=== PATIENT | male | born 1940 | race Hispanic/Latino ===

== ENCOUNTER 2016-11-15 09:58 | Emergency (ER) | payer MEDICARE ==
[2016-11-15 10:50] LABS: Basophils % (Auto) 0.3 % (0.0-1.8); Eosinophils % (Auto) 1.7 % (0.0-4.3); Hematocrit 41.5 % (35.5-45.6); Hemoglobin 13.8 gm/dl (11.8-15.2); Mean Corpuscular HGB Conc 33 % (32-34); Mean Corpuscular Hemoglobin 31 pg (28-32); Mean Corpuscular Volume 93 fl (84-94); Platelet Count 255 K/mm3 (140-440); Red Blood Count 4.46 M/mm3 (3.65-5.03); Red Cell Distribution Width 13.5 % (13.2-15.2); White Blood Count 11.1 K/mm3 (4.5-11.0)
[2016-11-15 10:56] LABS: Anion Gap 21 mmol/L; BUN/Creatinine Ratio 18.88; Blood Urea Nitrogen 17 mg/dL (9-20); Carbon Dioxide 21 mmol/L (22-30); Chloride 100.6 mmol/L (98-107); Glucose 112 mg/dL (75-100); Potassium 4.6 mmol/L (3.6-5.0); Sodium 138 mmol/L (137-145)
[2016-11-15 11:07] LABS: INR 1.02 (0.87-1.13)
[2016-11-15 11:08] LABS: Partial Thromboplastin Time 32.6 Sec. (24.2-36.6)
--- NOTE | 2016-11-15 11:15 | Emergency Department Report ---
ED General Adult HPI - General Chief complaint: Urogenital-Male Stated complaint: BLEEDING FROM PENIS Time Seen by Provider: 11/15/16 11:14 Source: patient, EMS Mode of arrival: Stretcher Limitations: No Limitations - History of Present Illness Initial comments: Patient has been unable to urinate since last night. He has suprapubic discomfort which is obviously related to a distended. He is status post prostatectomy. Dr. Farias was his urologist. He has not been back to urology doctor for years. He states that he has had hesitancy and difficulty emptying his bladder for quite some time. Last night after he was unable to urinate he developed some zak blood from his penis. He has no history of any urethral problem. He does not complain of fever or chills. -: Gradual, hour(s) Location: abdomen Quality: aching Consistency: constant Improves with: none Worsens with: none Associated Symptoms: denies other symptoms - Related Data Previous Rx's Medication Instructions Recorded Last Taken Type Nitrofurantoin Gilchrist/M-Cryst 100 mg PO Q12HR #14 capsule 11/15/16 Unknown Rx [Macrobid CAP] Allergies Allergy/AdvReac Type Severity Reaction Status Date / Time No Known Allergies Allergy Unverified 11/15/16 10:12 ED Review of Systems ROS: Stated complaint: BLEEDING FROM PENIS Other details as noted in HPI Constitutional: denies: chills, fever Eyes: denies: eye pain, eye discharge, vision change ENT: denies: ear pain, throat pain Respiratory: denies: cough, shortness of breath, wheezing Cardiovascular: denies: chest pain, palpitations Endocrine: no symptoms reported Gastrointestinal: denies: abdominal pain, nausea, diarrhea Genitourinary: as per HPI, urgency, hematuria, other. denies: dysuria Musculoskeletal: denies: back pain, joint swelling, arthralgia Skin: denies: rash, lesions Neurological: denies: headache, weakness, paresthesias Psychiatric: denies: anxiety, depression Hematological/Lymphatic: denies: easy bleeding, easy bruising ED Past Medical Hx - Past Medical History Previous Medical History?: Yes Hx of Cancer: Yes (prostate) - Surgical History Past Surgical History?: Yes Additional Surgical History: prostate removal - Social History Smoking Status: Current Some Day Smoker Substance Use Type: Alcohol - Medications Home Medications: Home Medications Medication Instructions Recorded Confirmed Last Taken Type Nitrofurantoin Gilchrist/M-Cryst 100 mg PO Q12HR #14 capsule 11/15/16 Unknown Rx [Macrobid CAP] ED Physical Exam - General Limitations: No Limitations General appearance: alert, in no apparent distress - Head Head exam: Present: atraumatic, normocephalic - Eye Eye exam: Present: normal appearance. Absent: scleral icterus - ENT ENT exam: Present: mucous membranes moist - Neck Neck exam: Present: normal inspection - Respiratory Respiratory exam: Present: normal lung sounds bilaterally. Absent: respiratory distress - Cardiovascular Cardiovascular Exam: Present: regular rate, normal rhythm. Absent: systolic murmur, diastolic murmur, rubs, gallop - GI/Abdominal GI/Abdominal exam: Present: soft (them is soft and nontender except for the bladder area suprapubic), distended, tenderness (associated with a distended bladder), normal bowel sounds, organomegaly (very significant system megaly noted). Absent: guarding, rebound, rigid - Rectal Rectal exam: Present: deferred - Extremities Exam Extremities exam: Present: normal inspection - Back Exam Back exam: Present: normal inspection. Absent: CVA tenderness (R), CVA tenderness (L) - Neurological Exam Neurological exam: Present: alert, oriented X3, CN II-XII intact. Absent: motor sensory deficit - Psychiatric Psychiatric exam: Present: normal affect, normal mood - Skin Skin exam: Present: warm, dry, intact, normal color. Absent: rash ED Course Vital Signs 11/15/16 10:09 Temperature 98.4 F Pulse Rate 91 H Respiratory 18 Rate Blood Pressure 163/88 O2 Sat by Pulse 98 Oximetry - Reevaluation(s) Reevaluation #1: The trip in progress. Urine is flowing. There is much less blood in the irrigation. Continue to irrigate one more bag. Patient will be discharged. He hasn't seen Dr. Farias since 2003. He may call his office or [place] [facility] for follow-up. 11/15/16 13:59 ED Medical Decision Making - Lab Data Result diagrams: 11/15/16 10:17 11/15/16 10:17 Laboratory Results - last 24 hr 11/15/16 11/15/16 11/15/16 10:17 10:17 10:17 WBC 11.1 H RBC 4.46 Hgb 13.8 Hct 41.5 MCV 93 MCH 31 MCHC 33 RDW 13.5 Plt Count 255 Lymph % (Auto) 14.4 Gilchrist % (Auto) 5.5 Eos % (Auto) 1.7 Baso % (Auto) 0.3 Lymph # 1.6 Gilchrist # 0.6 Eos # 0.2 Baso # 0.0 Seg Neutrophils % 78.1 H Seg Neutrophils # 8.7 H PT 13.3 INR 1.02 APTT 32.6 Sodium 138 Potassium 4.6 Chloride 100.6 Carbon Dioxide 21 L Anion Gap 21 BUN 17 Creatinine 0.9 Estimated GFR > 60 BUN/Creatinine Ratio 18.88 Glucose 112 H Calcium 9.0 Critical care attestation.: If time is entered above; I have spent that time in minutes in the direct care of this critically ill patient, excluding procedure time. ED Disposition Clinical Impression: Gross hematuria, Bladder outlet obstruction Disposition: DISCHARGED TO HOME OR SELFCARE Is pt being admited?: No Does the pt Need Aspirin: No Condition: Stable Instructions: Pelayo Catheter Placement and Care (ED), Urinary Leg Bag (GEN) Additional Instructions: See urologist tomorrow. Return any acute change or problem, fever, chills or any obstruction of urine flow. Prescriptions: Nitrofurantoin Gilchrist/M-Cryst [Macrobid CAP] 100 mg PO Q12HR #14 capsule Referrals: PRIMARY CARE, [Primary Care Provider] - 3-5 Days Time of Disposition: 14:01
[2016-11-15] MEDS ORDERED: NACL 0.9% IR SCH (12:00)
--- NOTE | 2016-11-15 15:20 | ED Elopement Review ---
ED Pt Elopement review - Results review Lab results: Laboratory Tests 11/15/16 11/15/16 11/15/16 10:17 10:17 10:17 WBC 11.1 H RBC 4.46 Hgb 13.8 Hct 41.5 MCV 93 MCH 31 MCHC 33 RDW 13.5 Plt Count 255 Lymph % (Auto) 14.4 [place] % (Auto) 5.5 Eos % (Auto) 1.7 Baso % (Auto) 0.3 Lymph # 1.6 [place] # 0.6 Eos # 0.2 Baso # 0.0 Seg Neutrophils % 78.1 H Seg Neutrophils # 8.7 H PT 13.3 INR 1.02 APTT 32.6 Sodium 138 Potassium 4.6 Chloride 100.6 Carbon Dioxide 21 L Anion Gap 21 BUN 17 Creatinine 0.9 Estimated GFR > 60 BUN/Creatinine Ratio 18.88 Glucose 112 H Calcium 9.0 - Call Back decision Pt Call Back Decision: No action required
[2016-11-15 15:22] LABS: Bilirubin,Urine NEG (Negative); Blood,Urine MOD (Negative); Ketones,Urine TR mg/dL (Negative); Leukocyte Esterase,Urine MOD (Negative); Nitrite,Urine NEG (Negative); Urobilinogen,Urine < 2.0 mg/dL (<2.0)
[2016-11-15 15:25] LABS: RBC,Urine > 182.0 /HPF (0.0-6.0)
[2016-11-15 17:56] VITALS: BP 138/78
== END 2016-11-15 17:56 | disposition home or self-care (01) ==
LOC: ED 09:58
DX: R31.0 Gross hematuria (principal); N32.0 Bladder-neck obstruction; F17.200 Nicotine dependence, unspecified, uncomplicated; Z85.46 Personal history of malignant neoplasm of prostate
CPT/HCPCS: 36415; 51702; 80048; 81001; 85025; 85610; 85730; 87076; 87086; 87186; 99284; A4217

== ENCOUNTER 2016-11-17 15:11 | Emergency (ER) | payer MEDICARE, OTHER ==
--- NOTE | 2016-11-17 17:21 | Emergency Department Report ---
ED Fall HPI - General Chief Complaint: Urogenital-Male Stated Complaint: HEMATURIA Time Seen by Provider: 11/17/16 16:57 Source: patient, EMS Mode of arrival: Stretcher Limitations: No Limitations - History of Present Illness Initial Comments: 76-year-old male with a past medical history of prostate cancer status post prostatectomy in 2003 and a history of transverse myelitis in 1990 presents to the hospital status post fall, weakness, and continual hematuria. Patient was seen and evaluated here on the for urinary retention. Patient was seen by Dr. Calix. Apparently patient hypertension then a episode of hematuria. Patient had a catheter and irrigation performed in the ER and was discharged home to follow-up with urology. Patient states he attempts to call urology the next day (yesterday) and was told he should be receiving a email or guarding a follow-up appointment. As of today patient has no follow-up plan and has not heard back in the office. Patient was discharged on Macrobid as per medical record for patient denies receiving a prescription is not currently taking any antibiotics. Today patient while getting out of bed his legs gave out and he fell on the floor. He will did not have enough strength to stand up and has been crawling around the house since 7:30 AM until pickup by ambulance. Patient states the weakness in his legs is new. At his baseline he has mild left leg weakness requiring a cane use and chronic cold sensation in his bilateral lower extremities. He denies back pain or fever. - Related Data Home Medications Medication Instructions Recorded Confirmed Last Taken Ibuprofen [Motrin] 800 mg PO PRN 11/17/16 11/17/16 Unknown Allergies Allergy/AdvReac Type Severity Reaction Status Date / Time No Known Allergies Allergy Unverified 11/15/16 10:12 ED Review of Systems ROS: Stated complaint: HEMATURIA Other details as noted in HPI Comment: All other systems reviewed and negative Other: Constitutional: No fevers chills or weight loss Eyes: No eye pain visual changes or discharge ENT: No ear pain or throat pain Neck: Denies pain Respiratory: Denies cough wheezing shortness of breath Cardiovascular: Denies chest pain, palpitations, syncope GI: Denies abdominal pain, nausea, vomiting, diarrhea : as per hpi Musculoskeletal: Denies back pain Skin: Denies rash, lesions, erythema Neurologic: Denies headache ED Past Medical Hx - Past Medical History Previous Medical History?: Yes Hx of Cancer: Yes (Prostate cancer-chemo/radiation) Additional medical history: Scoliosis. transverse myelitis in 1990 resulting in cane use, mild left leg weakness and b/l foot cold sensation - Surgical History Past Surgical History?: Yes Additional Surgical History: prostate removal. cornelia inguinal hernia removal - Social History Smoking Status: Light Tobacco Smoker Substance Use Type: Alcohol - Medications Home Medications: Home Medications Medication Instructions Recorded Confirmed Last Taken Type Ibuprofen [Motrin] 800 mg PO PRN 11/17/16 11/17/16 Unknown History ED Physical Exam - General Limitations: Physical Limitation - Other Other exam information: General: No limitations, patient is alert in no acute distress Head exam: Atraumatic, normocephalic Eyes exam: Normal appearance, pupils equal reactive to light, extraocular movements intact ENT: Moist mucous membrane, normal oropharynx Neck exam: Normal inspection, full range of motion Respiratory exam: Clear to auscultation bilateral, no wheezes, rales, crackles Cardiovascular: Normal rate and rhythm, normal heart sounds Abdomen: Soft, nondistended, and nontender, with normal bowel sounds, no rebound, or guarding Extremity: Full range of motion of extremities. Bruising noted to anterior knees from crawling. No specific bony tenderness Back: no tenderness Neurologic: Alert, oriented x3, cranial nerves intact, patient is unable to sustain any antigravity movement. He is unable to lift legs off the bed and when I passively lift them he cannot sustain. Sensation to light touch grossly intact and equal. Psychiatric: normal affect, normal mood Skin: Warm, dry, intact ED Course Vital Signs 11/17/16 11/17/16 11/17/16 16:38 16:40 16:46 Temperature 98.9 F Pulse Rate 89 86 85 Respiratory 18 20 15 Rate Blood Pressure 151/71 Blood Pressure 151/71 [Left] O2 Sat by Pulse 97 98 Oximetry 11/17/16 11/17/16 11/17/16 16:50 16:59 17:00 Temperature Pulse Rate 87 86 Respiratory 24 15 16 Rate Blood Pressure 156/62 156/62 Blood Pressure [Left] O2 Sat by Pulse 98 98 98 Oximetry 11/17/16 11/17/16 11/17/16 17:10 17:20 17:30 Temperature Pulse Rate 89 88 91 H Respiratory 15 17 9 L Rate Blood Pressure 171/67 171/67 171/67 Blood Pressure [Left] O2 Sat by Pulse 98 96 96 Oximetry 11/17/16 11/17/16 11/17/16 17:40 17:50 18:00 Temperature Pulse Rate 93 H 88 89 Respiratory 12 19 15 Rate Blood Pressure 171/67 171/67 171/67 Blood Pressure [Left] O2 Sat by Pulse 97 97 95 Oximetry 11/17/16 11/17/16 11/17/16 18:10 18:20 18:30 Temperature Pulse Rate 96 H 97 H 97 H Respiratory 21 28 H 23 Rate Blood Pressure 146/58 146/58 146/58 Blood Pressure [Left] O2 Sat by Pulse 96 97 95 Oximetry 11/17/16 11/17/16 11/17/16 18:40 18:50 18:54 Temperature Pulse Rate 92 H 97 H 97 H Respiratory 18 15 19 Rate Blood Pressure 146/58 171/67 Blood Pressure 146/58 [Left] O2 Sat by Pulse 97 96 98 Oximetry 11/17/16 11/17/16 11/17/16 19:40 19:50 19:51 Temperature 101.4 F H Pulse Rate 97 H 98 H Respiratory 25 H 15 Rate Blood Pressure 146/58 160/68 Blood Pressure 160/68 [Left] O2 Sat by Pulse 95 97 96 Oximetry 11/17/16 11/17/16 11/17/16 20:00 20:10 20:20 Temperature Pulse Rate 96 H 96 H 99 H Respiratory 21 26 H 11 L Rate Blood Pressure 152/63 152/63 152/63 Blood Pressure [Left] O2 Sat by Pulse 97 96 96 Oximetry 11/17/16 11/17/16 11/17/16 20:30 20:40 20:50 Temperature Pulse Rate 93 H 97 H 99 H Respiratory 19 25 H 22 Rate Blood Pressure 152/63 152/63 152/63 Blood Pressure [Left] O2 Sat by Pulse 97 96 95 Oximetry 11/17/16 11/17/16 11/17/16 21:00 21:10 21:20 Temperature Pulse Rate 96 H 88 95 H Respiratory 28 H 26 H 28 H Rate Blood Pressure 159/54 159/54 159/54 Blood Pressure [Left] O2 Sat by Pulse 94 95 96 Oximetry 11/17/16 11/17/16 11/17/16 21:30 21:40 21:50 Temperature Pulse Rate 92 H 94 H 92 H Respiratory 14 23 15 Rate Blood Pressure 159/54 159/54 159/54 Blood Pressure [Left] O2 Sat by Pulse 94 95 96 Oximetry 11/17/16 11/17/16 11/17/16 21:51 22:00 22:10 Temperature 99.6 F Pulse Rate 87 82 Respiratory 17 22 Rate Blood Pressure 136/59 136/59 Blood Pressure [Left] O2 Sat by Pulse 95 94 Oximetry 11/17/16 11/17/16 22:20 22:30 Temperature Pulse Rate 81 82 Respiratory 21 23 Rate Blood Pressure 136/59 136/59 Blood Pressure [Left] O2 Sat by Pulse 95 96 Oximetry - Reevaluation(s) Reevaluation #1: 11/17/16 19:54 Patient developed a fever at this time. UA shows infection and was collected by previous shift. I am unsure if it was collected from port or bag. Culture of urine and blood ordered at this time. Rocephin 1 g ordered - Consultations Consultation #1: 11/17/16 17:30 Dr Levine consulted (neurolgy) and will evaluate. Consultation #2: 11/17/16 21:54 Case d/w Dr Leonard with [facility] transfer service and has accepted the pt for transfer and admission 11/17/16 21:58 received call back from [facility] the do not have beds and can not accept the pt. 11/17/16 21:58 [facility] transfer service informed 11/17/16 23:23 No call back in an hour after Central page therefore [facility] was contacted and accepted patient Consultation #3: 11/17/16 23:21 Dr Kirby from [facility] contacted and Has accepted pt for transfer. ED Medical Decision Making - Lab Data Result diagrams: 11/17/16 17:42 11/17/16 17:42 Lab Results 11/17/16 11/17/16 11/17/16 Range/Units 17:42 17:42 17:42 WBC 10.4 (4.5-11.0) K/mm3 RBC 4.02 (3.65-5.03) M/mm3 Hgb 12.6 (11.8-15.2) gm/dl Hct 37.3 (35.5-45.6) % MCV 93 (84-94) fl MCH 31 (28-32) pg MCHC 34 (32-34) % RDW 14.0 (13.2-15.2) % Plt Count 208 (140-440) K/mm3 Lymph % (Auto) 9.6 L (13.4-35.0) % [place] % (Auto) 5.8 (0.0-7.3) % Eos % (Auto) 0.0 (0.0-4.3) % Baso % (Auto) 0.3 (0.0-1.8) % Lymph # 1.0 L (1.2-5.4) K/mm3 [place] # 0.6 (0.0-0.8) K/mm3 Eos # 0.0 (0.0-0.4) K/mm3 Baso # 0.0 (0.0-0.1) K/mm3 Seg Neutrophils % 84.3 H (40.0-70.0) % Seg Neutrophils # 8.8 H (1.8-7.7) K/mm3 Sodium 136 L (137-145) mmol/L Potassium 3.7 (3.6-5.0) mmol/L Chloride 95.3 L (98-107) mmol/L Carbon Dioxide 25 (22-30) mmol/L Anion Gap 19 mmol/L BUN 24 H (9-20) mg/dL Creatinine 0.9 (0.8-1.5) mg/dL Estimated GFR > 60 ml/min BUN/Creatinine Ratio 26.66 % Glucose 132 H (75-100) mg/dL Calcium 9.1 (8.4-10.2) mg/dL Total Creatine Kinase 436 H (55-170) units/L CK-MB (CK-2) 3.3 (0.0-4.0) ng/mL CK-MB (CK-2) Rel Index 0.7 (0-4) Troponin T < 0.010 (0.00-0.029) ng/mL Urine Color (Yellow) Urine Turbidity (Clear) Urine pH (5.0-7.0) Ur Specific [place] (1.003-1.030) Urine Protein (Negative) mg/dL Urine Glucose (UA) (Negative) mg/dL Urine Ketones (Negative) mg/dL Urine Blood (Negative) Urine Nitrite (Negative) Urine Bilirubin (Negative) Urine Urobilinogen (<2.0) mg/dL Ur Leukocyte Esterase (Negative) Urine WBC (Auto) (0.0-6.0) /HPF Urine RBC (Auto) (0.0-6.0) /HPF Ur Renal Epithelial Cell /LPF Urine Mucus /HPF 11/17/16 Range/Units 18:47 WBC (4.5-11.0) K/mm3 RBC (3.65-5.03) M/mm3 Hgb (11.8-15.2) gm/dl Hct (35.5-45.6) % MCV (84-94) fl MCH (28-32) pg MCHC (32-34) % RDW (13.2-15.2) % Plt Count (140-440) K/mm3 Lymph % (Auto) (13.4-35.0) % [place] % (Auto) (0.0-7.3) % Eos % (Auto) (0.0-4.3) % Baso % (Auto) (0.0-1.8) % Lymph # (1.2-5.4) K/mm3 [place] # (0.0-0.8) K/mm3 Eos # (0.0-0.4) K/mm3 Baso # (0.0-0.1) K/mm3 Seg Neutrophils % (40.0-70.0) % Seg Neutrophils # (1.8-7.7) K/mm3 Sodium (137-145) mmol/L Potassium (3.6-5.0) mmol/L Chloride (98-107) mmol/L Carbon Dioxide (22-30) mmol/L Anion Gap mmol/L BUN (9-20) mg/dL Creatinine (0.8-1.5) mg/dL Estimated GFR ml/min BUN/Creatinine Ratio % Glucose (75-100) mg/dL Calcium (8.4-10.2) mg/dL Total Creatine Kinase (55-170) units/L CK-MB (CK-2) (0.0-4.0) ng/mL CK-MB (CK-2) Rel Index (0-4) Troponin T (0.00-0.029) ng/mL Urine Color Red (Yellow) Urine Turbidity Cloudy (Clear) Urine pH 6.0 (5.0-7.0) Ur Specific [place] 1.019 (1.003-1.030) Urine Protein 100 mg/dl (Negative) mg/dL Urine Glucose (UA) Neg (Negative) mg/dL Urine Ketones 20 (Negative) mg/dL Urine Blood Lg (Negative) Urine Nitrite Pos (Negative) Urine Bilirubin Neg (Negative) Urine Urobilinogen < 2.0 (<2.0) mg/dL Ur Leukocyte Esterase Lg (Negative) Urine WBC (Auto) > 182.0 H (0.0-6.0) /HPF Urine RBC (Auto) > 182.0 (0.0-6.0) /HPF Ur Renal Epithelial Cell 2 /LPF Urine Mucus 2+ /HPF - Radiology Data Radiology results: report reviewed CT abdomen and pelvis without contrast: Increased perinephric and periureteric Changes seen on the left possibly due to infectious or inflammatory. Less likely a recently passed stone. CT thoracic spine with IV contrast: Prominent scoliosis is seen in the large left lateral osteophytes in the mid to lower thoracic spine. There is a predominant left neuroma foraminal stenosis are seen to to be changes in the lower thoracic spine. CT lumbar spine with IV contrast: Prominent scoliosis is seen with prominent bony neural foraminal stenosis on the right at L4-L5 - Medical Decision Making Plan to transfer patient to [facility] due to new-onset weakness and lack of neurology and neurosurgery coverage at this facility. Patient's weakness could be due to a new spinal cord issue or related to acute infection/ UTI. I am unsure cause of hematuria at this time. Patient received Rocephin and urine cultures have been ordered. - Differential Diagnosis spinal cord disorder, transverse myelitis, cystitis Critical Care Time: No Critical care attestation.: If time is entered above; I have spent that time in minutes in the direct care of this critically ill patient, excluding procedure time. ED Disposition Clinical Impression: Gross hematuria, Bladder outlet obstruction, Pelayo catheter in place prior to arrival, Bilateral leg weakness, UTI (urinary tract infection), Fever, Hx of prostatic malignancy, Hx of prostatectomy Disposition: DC/TX ANOTHER TYPE HEALTHCARE Is pt being admited?: Yes Condition: Stable Time of Disposition: 23:24 (Dr Kirby [facility] accepted pt for transfer and admission )
[2016-11-17 18:04] LABS: Basophils % (Auto) 0.3 % (0.0-1.8); Hematocrit 37.3 % (35.5-45.6); Hemoglobin 12.6 gm/dl (11.8-15.2); Mean Corpuscular HGB Conc 34 % (32-34); Mean Corpuscular Hemoglobin 31 pg (28-32); Mean Corpuscular Volume 93 fl (84-94); Platelet Count 208 K/mm3 (140-440); Red Blood Count 4.02 M/mm3 (3.65-5.03); White Blood Count 10.4 K/mm3 (4.5-11.0)
[2016-11-17 18:24] LABS: Anion Gap 19 mmol/L; BUN/Creatinine Ratio 26.66; Blood Urea Nitrogen 24 mg/dL (9-20); Calcium 9.1 mg/dL (8.4-10.2); Carbon Dioxide 25 mmol/L (22-30); Chloride 95.3 mmol/L (98-107); Glucose 132 mg/dL (75-100); Potassium 3.7 mmol/L (3.6-5.0); Sodium 136 mmol/L (137-145)
[2016-11-17 18:25] LABS: Creatine Kinase MB 3.3 ng/mL (0.0-4.0)
[2016-11-17 18:26] LABS: Creatine Kinase 436 units/L (55-170)
[2016-11-17] MEDS ORDERED: NACL 0.9% 1000 ML 1,000 ML IV ONE (18:31)
[2016-11-17 19:10] LABS: Bilirubin,Urine NEG (Negative); Blood,Urine LG (Negative); Ketones,Urine 20 mg/dL (Negative); Leukocyte Esterase,Urine LG (Negative); Mucus,Urine 2+ /HPF; Nitrite,Urine POS (Negative); Renal Epithelial Cells,Urine 2 /LPF; Urobilinogen,Urine < 2.0 mg/dL (<2.0)
[2016-11-17 19:11] LABS: RBC,Urine > 182.0 /HPF (0.0-6.0); WBC,Urine > 182.0 /HPF (0.0-6.0)
--- NOTE | 2016-11-17 19:18 | Admit Criteria Form ---
Admission Criteria Documentation: NEUROLOGY [facility] Clinical Indications for Admission to Inpatient Care (Place ' X' for any and all applicable criteria): Hospital admission is needed for appropriate care of the patient because of ANY ONE of the following: [ ]I. New-onset or worsening altered mental status remaining after emergency or observation level care (as appropriate) (9)(10)(11) [ ]II. Severe MILL OILER infections or inflammatory conditions, including ANY ONE of the following(1)(2)(3): [ ]a) Intracranial abscess [ ]b) Spinal abscess or myelitis [ ]c) Tuberculous or other nonbacterial, nonviral MILL OILER infection(8) [ ]III. Encephalitis(1)(2)(3) [ ]IV. Status epilepticus or repetitive seizures not controlled with emergent treatment [A] (7)(8) [ ]V. Transient alteration in consciousness with high-risk etiology; examples include (12)(13): [ ]a) Cardiovascular source [ ]b) Cataplexy [ ]. Cerebral aneurysm requiring ANY ONE of the following(14): [ ]a) IV antihypertensives or vasoactive agents [ ]b) Sedation and analgesia for suspected leak [ ]c) Need for external ventricular drainage and cerebral perfusion pressure monitoring [ ]d) Emergent evaluation to determine need for surgical clipping or endovascular coiling by interventional radiology. If surgery is required ( Also use Craniotomy, Supratentorial, for Surgery of Bleeding Intracranial Aneurysm (for bleeding aneurysm) or Craniotomy, Supratentorial (for nonbleeding aneurysm) as appropriate. [ ]VII. Altered mental status that is severe or persistent(16) [ ]VIII New-onset severe neurologic findings requiring inpatient care; examples include: [ ]a) Papilledema [ ]b) Cerebral edema [ ]c) Mass effect on imaging [X]IX. New-onset severe neurologic symptom requiring inpatient care indicated by ANY ONE of the following: [ ]a) Aphasia(15) [X]b) Weakness (grade 3 or less) [ ]c) Paralysis (eg, hemiplegia) [ ]d) Spasticity(16) [ ]e) Ataxia(17) [ ]f) Amnesia(18) [ ]g) Involuntary movements(19) [ ]h) Vertigo [ ]i) Other severe neurologic symptom not treatable at alternative level of care (eg, observation care) [ ]X. Guillain-Datil syndrome(20) [ ]XI. Myasthenia gravis crisis or inpatient monitoring need as indicated by ANY ONE of the following(21): [ ]a) Inadequate airway protection [ ]b) Respiratory insufficiency requiring intubation or inpatient. monitoring [ ]c) Progressive dysphagia with failure to thrive [ ]d) Intensive treatment (eg, course of plasmapheresis) with inadequate outpatient situation to monitor patients status [ ]XII. Multiple sclerosis or other acute demyelinating disease requiring inpatient care as indicated by ANY ONE of the following (22)(23): [ ]a) Acute severe deterioration requiring inpatient treatment (eg, IV steroids, plasmapheresis, close observation) [ ]b) Acute complication requiring inpatient care (eg, sepsis, severe decubitus, aspiration) [ ]XIII. Intracranial hypertension (eg, pseudotumor cerebri) requiring inpatient care (eg, acute visual loss, inadequate oral intake) (24) [ ]XIV.Parkinson disease requiring inpatient care (Also use Optimal Recovery Care Criteria or General Recovery Criteria as appropriate) indicated by ANY ONE of the following(25): [ ]a) Infection (eg, aspiration pneumonia) not treatable at alternative level of care [ ]b) Volume depletion not responsive to emergency and observation care treatment (as appropriate) [ ]c) Life-threatening agitation or psychotic behavior not treatable on emergency, observation care, or alternative level (eg, residential) basis [ ]d) Severe medication withdrawal effects (eg, freezing, neuroleptic malignant syndrome) not responsive to emergency and observation care treatment (as appropriate) [ ]e) Other severe manifestation not treatable at alternative level of care [ ]XV.Amyotrophic lateral sclerosis with inpatient care needs as indicated by ANY ONE of the following(26): [ ]a) Acute complications requiring inpatient care (Use Optimal Recovery Care Criteria or General Recovery Criteria as appropriate); examples include: [ ]i) Aspiration pneumonia [ ]ii) Sepsis [ ]b) Dehydration or hypovolemia (not responsive to emergency and observation care treatment as appropriate) AND artificial support desired [ ]c) Inadequate airway protection AND artificial support desired [ ]d) Severe ventilatory insufficiency AND artificial support desired [ ]XVI.Severe myopathy, neuropathy, or other neuromuscular disease as indicated by ANY ONE of the following: [ ]a) New-onset severe diffuse weakness (eg, strength 3/5 or less) [ ]b) Severe dysphagia [ ]c) Dyspnea at rest or with minimal exertion (new) [ ]d) Inadequate airway protection [ ]e) Inadequate ventilation as indicated by ANY ONE of the following : [ ]i) Partial pressure of carbon dioxide greater than 44 mm Hg (5.9 kPa) (new) [ ]ii) Reduced peak expiratory flow rate (new) [ ]iii) Vital capacity less than 50% of predicted ( less than 15 mL/kg) [ ]iv) Peak inspiratory force less negative than -30 cm H20 (-2942 Pa) [ ]XVII.Complications of congenital or degenerative disease (eg, infection, seizures, dehydration, injury) not responsive to emergency and observation care treatment (as appropriate ) [C](16)(29)(30) [ ]XVIII.Suspected or confirmed nerve or muscle toxic injury, including ANY ONE of the following: [ ]a) Rhabdomyolysis(31) [ ]b) Botulism(32) [ ]c) Other severe toxin-induced sign or symptom [ ]XIX. Neurologic trauma requiring inpatient treatment (medical) indicated by ANY ONE of the following(33)(34): [ ]a) Vital signs or neurologic signs more frequently than every 4 hours [ ]b) Hyperosmolar therapy [ ]c) Respiratory monitoring [ ]d) Intracranial pressure monitoring and treatment [ ]e) Stabilization and immobilization device placement (eg, braces, body jacket) [ ]f) Intubation & mechanical ventilation for airway protection or therapeutic hyperventilation [ ]g) Other treatment or monitoring needed that requires inpatient level of care [ ]XX.Complications of neurologic devices (eg, ventricular shunt, neurostimulator) requiring ANY ONE of the following(35)(36): [ ]a) IV antibiotics with monitoring while awaiting culture results [ ]b) Monitoring for hydrocephalus [ ]XXI Vasculitis with ANY ONE of the following(4)(5): [ ]a) Altered mental status [ ]b) Psychosis [ ]c) Seizures [ ]XXII. Neurology condition and ALL of the following: [ ]a) Symptom or finding for which emergency and observation care have failed or are not considered appropriate (Use General Criteria: Observation Care as appropriate) [ ]b) Presence of ANY ONE of the following: [ ]i) A General Admission Criteria [ ]ii A Pediatric General Admission Criteria The original [facility] content created by [facility] has been revised. The portions of the content which have been revised are identified through the use of italic text or in bold, and [facility] has neither reviewed nor approved the modified material. All other unmodified content is copyright [facility] Please see references footnoted in the original [facility] edition 2016
--- NOTE | 2016-11-17 20:52 | Cat Scan Report ---
FINAL REPORT PROCEDURE: CT ABDOMEN PELVIS WO CON TECHNIQUE: Computerized axial tomography of the abdomen and pelvis was performed without intravenous contrast. This study is performed without intravascular contrast material and its sensitivity for abdominal and pelvic pathology, including neoplasms, inflammation, abscess, free fluid, thrombosis, arterial dissection and infarction, is reduced compared with a contrast enhanced study. HISTORY: hematuria, hx of prostate cancer-prostectomy COMPARISON: No prior studies are available for comparison. FINDINGS: Mild hypoventilatory changes are seen at the lung bases. Spleen is top normal limits in size. Liver and gallbladder display no abnormalities. There is partial fatty replacement of the pancreas. The adrenal glands and abdominal aorta are normal in size. Increased perinephric streaky densities are seen on the left compared to the right. No hydronephrosis or ureterectasis is seen but there may be mild left periureteric streaky densities, also. Infectious or inflammatory involvement of the left kidney and collecting system is not excluded given the appearance. Less likely findings could be due to recently passed stone. No stones are seen in either kidney. Bladder is decompressed with a Pelayo catheter. Surgical clips are seen in the deep pelvis. No free pelvic fluid is seen. Diverticula are seen in the left side of the colon without evidence of diverticulitis. Normal appendix is seen. Prominent levoscoliosis is seen centered in the mid lumbar spine with likely moderate lumbar spondylosis. IMPRESSION: Increased perinephric and periureteric changes are seen on the left possibly due to infectious or inflammatory condition in the left kidney and ureter. Less likely findings are due to recently passed stone.
[2016-11-17] MEDS ORDERED: ROCEPHIN/NS 1 GM/50 ML 1 GM/50 ML BAG IV ONE (20:57)
--- NOTE | 2016-11-17 20:57 | Cat Scan Report ---
FINAL REPORT PROCEDURE: CT THORACIC SPINE W CON TECHNIQUE: Computerized axial tomography of the thoracic spine was performed of the thoracic spine without IV contrast. HISTORY: b/l leg weakness, urine retention, hematuria COMPARISON: No prior studies are available for comparison. FINDINGS: Prominent dextroscoliosis is seen centered in the lower thoracic spine. Large left lateral osteophytes are seen in the mid to lower thoracic spine. No thoracic compression fracture is seen. No subluxation is seen. Bony changes cause prominent left neural foraminal stenosis at T11-12, T10-11, T9-10 and T8-9. IMPRESSION: Prominent scoliosis is seen with large left lateral osteophytes in the mid to lower thoracic spine. Areas of prominent left neural foraminal stenosis are seen due to these changes in the lower thoracic spine.
--- NOTE | 2016-11-17 21:02 | Cat Scan Report ---
FINAL REPORT PROCEDURE: CT LUMBAR SPINE W CON TECHNIQUE: Contrast-enhanced CT of the lumbar spine is performed with sagittal and coronal reconstructions. HISTORY: b/l leg weakness, urine retention, hematuria COMPARISON: No prior studies are available for comparison. FINDINGS: Prominent levoscoliosis is seen in the lower lumbar spine. Large right lateral osteophytes are seen in the mid lumbar spine. No suspicious lytic or sclerotic lesions are seen. Hypertrophic facet changes and uncovertebral osteophytes cause prominent right neural foraminal stenosis at L4-5. No lumbar compression fracture is seen. IMPRESSION: Prominent scoliosis is seen with prominent bony neural foraminal stenosis on the right at L4-5.
[2016-11-17] MEDS ORDERED: TYLENOL PO ONE (21:56)
--- NOTE | 2016-11-18 00:38 | Admit Criteria Form ---
Admission Criteria Documentation: UROLOGIC DISEASE [facility] Clinical Indications for Admission to Inpatient Care (Place ' X' for any and all applicable criteria): Hospital admission is needed for appropriate care of the patient because of ANY ONE of the following: [ ]I. New-onset Reduced urine output, or hydronephrosis remaining after emergency or observation level care indicated by ANY ONE the following (1)(2) [ ]a) Urine output less than 0.5 mL/kg/hour for 6 hours in adult [ ]b) Anuria (urine output less than 0.1 mL/kg/hour) for 4 hours in any age group [ ]c) Reduced output in child as indicated by ANY ONE of the following (3) [ ]i) Urine output less than 2 mL/kg/hour for 6 hours in younger than 2 [ ]ii) Urine output less than 1 mL/kg/hour for 6 hours in child younger than 12 years [ ]iii) Urine output less than 0.75 mL/kg/hour for 6 hours in adolescent younger than 18 years [ ]II. Acute urinary retention requiring inpatient management as indicated by ANY ONE of the following(1)(13): [ ]a) Hemodynamic instability remaining after emergency or observation level care (as appropriate) [ ]b) Retention cannot be alleviated via emergency or observation level care (eg, urinary catheter placement) [ ]c) Acute neurologic etiology (eg, cauda equina) [ ]d) Dehydration or other complications not manageable with emergency or observation level care [ ]e) Acute kidney injury (that does not qualify as Acute renal failure ) requiring inpatient care indicated by ALL of the following(5)(6)(7)(8) (9): [ ]i) Acute kidney injury indicated by ANY ONE of the following: [ ]1) 2-fold or more rise in serum creatinine from baseline [ ]2) Reduction of more than 50% in estimated glomerular filtration rate from baseline [ ]3) Urine output less than 0.5 mL/kg/hr for 12 hours despite adequate volume status [ ]ii) Worsening clinical status (eg, rising creatinine) despite outpatient and observation care treatment (eg, hydration) [X ]III. Gross hematuria requiring inpatient management as indicated by ANY ONE of the following(1)(2): [ X]a) Evidence of renal obstruction [ ]b) Reduced urine output (eg urine output <0.5mL/kg per hr over 6 hrs) [ ]c) Clot retention after urinary catheterization and irrigation [ ]d) Anemia [ ]e) Systemic cause needing inpatient treatment (eg, Goodpasture syndrome) [ ]IV. Urologic infection requiring inpatient care as indicated by ANY ONE of the following(10)(11)(12): [ ]a) Dehydration that is severe or persistent [ ]b) Hemodynamic instability [ ]c) Failure of, or inability to tolerate, outpatient treatment regimen [ ]d) Increased creatinine without known prior cause [ ]e) Known renal or urologic abnormalities (eg, indwelling catheter , structural abnormalities) [ ]f) Recent urologic manipulation [ ]g) Urinary obstruction [ ]h) Immunocompromised state [ ]V. Renal disease needing inpatient care (eg, nephritis, nephrosis) as indicated by ANY ONE of the following(2)(3)(4): [ ]a) Systemic cause (eg, Goodpasture syndrome) needing inpatient care (5) [ ]b) Rapidly progressive disease needing inpatient care (eg, plasmapheresis, immunosuppression)(6) [ ]c) Hemoptysis [ ]d) Hemolysis or thrombosis [ ]e) Anasarca needing inpatient care [ ]f) Hemolytic uremic syndrome(7)(8) [ ]g) Acute renal failure [ ]h) Significant uremic complications as indicated by ANY ONE of the following(1)(2)(3): [ ]i) Outpatient therapy is ineffective or not feasible for ANY ONE of the following: [ ]1) Severe heart failure [ ]2) Severe hypertension [ ]3) Pleural effusion [ ]4) Pericarditis or pericardial effusion [ ]ii) Cardiac arrhythmias of immediate concern [ ]iii) Recurrent seizures [ ]iv) Bleeding abnormalities (eg, platelet dysfunction) with active (eg, gastrointestinal) bleeding [ ]v) Dialysis indicated before long-term access or ambulatory arrangements can be made [ ]vi) Significant metabolic or electrolyte abnormalities (eg , severe acidosis or hyperkalemia) [ ]vii) Intractable nausea or vomiting [ ]viii) Encephalopathy [ ]. New-onset oliguria, anuria, or hydronephrosis not responsive to emergency and observation care treatment (as appropriate)(1) [ ]VII. Trauma to renal, genital, or urologic system requiring inpatient medical care(14)(15)(16)(17) [ ]VIII.Scrotal, testicular, or epididymal disorder requiring inpatient care indicated by ANY ONE of the following(1)(14)(15)(16): [ ]a) Scrotal edema or infection not manageable with emergency or observation level care [ ]b) Orchitis not manageable with emergency or observation level care [ ]c) Epididymitis not manageable with emergency or observation level of care [ ]d) Other scrotal, testicular, or epididymal disorder (eg, infection, inflammation) not manageable with emergency or observation level care [ ]IX. Urologic Disease and ALL of the following: [ ]a) Symptom or finding for which emergency and observation care have failed or are not considered appropriate (Use General Criteria: Observation Care as appropriate) [ ]b) Presence of ANY ONE of the following: [ ]i) A General Admission Criteria [ ]ii) A Pediatric General Admission Criteria The [facility] content created by [facility] has been revised. The portions of the content which have been revised are identified through the use of italic text or in bold, and [facility] has neither reviewed nor approved the modified material. All other unmodified content is copyright [facility]. Please see references footnoted in the original [facility] edition 2016 Admission Criteria Met: Yes
[2016-11-18 01:08] VITALS: BP 147/72
== END 2016-11-18 02:16 | disposition other institution (70) ==
LOC: ED 15:11
DX: R31.0 Gross hematuria (principal); N32.0 Bladder-neck obstruction; M62.81 Muscle weakness (generalized); N39.0 Urinary tract infection, site not specified; Z85.46 Personal history of malignant neoplasm of prostate; F17.200 Nicotine dependence, unspecified, uncomplicated
CPT/HCPCS: 36415; 51702; 72129; 72132; 74176; 80048; 81001; 82550; 82553; 84484; 85025; 87040; 87086; 93005; 93010; 96365; 99285; J0696; J7030; Q9967; 87076; 87186